=== PATIENT | female | born 2000 | race Caucasian/White ===

== ENCOUNTER → 2022-12-27 14:46 | Outpatient (CLI) | payer SELFPAY ==
--- NOTE | ~2022-12-27 | US_ITS ---
Pelvic ultrasound. Clinical History: Second trimester , inconclusive viability Technique: Realtime transabdominal and transvaginal scanning of the pelvis was performed. Color flow Doppler and Doppler spectral analysis were performed. Findings: The uterus is anteverted, and contains an intrauterine gestation. heart rate is 157 b pm. [place]-rump length of 6.3 cm corresponds to an estimated gestational age of 12 weeks 5 days. Cervi x closed, measuring 4.3 cm in length. The right ovary is not visualized. No significant right ovarian or adnexal mass is seen. The left ovary measures 3.6 x 3.5 x 4.1 cm. No significant left ovarian or adnexal mass is seen. There is no evidence of free fluid in the cul de sac. Impression: Live intrauterine gestation with estimated gestational age of 12 weeks 5 days. heart rate is 15 7 bpm. Reviewed, dictated and finalized at [facility]. Impression: Live intrauterine gestation with estimated gestational age of 12 weeks 5 days. heart rate is 157 bpm.
== END ==
PROVIDERS: PCP Advanced Practice Midwife; Visit Provider Advanced Practice Midwife
DX: O36.80X0 Pregnancy with inconclusive fetal viability, not applicable or unspecified (principal); Z3A.12 12 weeks gestation of pregnancy
CPT/HCPCS: 76801

== ENCOUNTER → 2023-02-04 15:47 | Outpatient (CLI) | payer SELFPAY ==
--- NOTE | ~2023-02-04 | US_ITS ---
EXAMINATION: US OB /maternal detail DATE: 02/04/2023 16:29 INDICATION: Encounter for screening, unspecified. TECHNIQUE: Real-time pelvic ultrasound was performed. COMPARISON: Ultrasound 12/27/2022 FINDINGS: There is a single living fetus in breech presentation. The placenta is posterior and covers the inte rnal cervical os. The cervical length is 4.5 cm which is normal. heart rate is 151 beats per mi nute (bpm). The amniotic fluid volume is subjectively normal. The following biometric data were obtained: Biparietal diameter (BPD): 4.0 cm; head circumference (HC): 14.9 cm; abdominal circumference (AC): 12 .5 cm; femur length (FL): 2.4 cm. These measurements are concordant. Estimated weight is 209 g +/- 31 g, which correlates with the 18th percentile when 07/06/23 is u sed as estimated date of delivery. As single measurements, these parameters are each equal to the following estimated gestational ages: BPD: 18 weeks 0 days. HC: 18 weeks 0 days. AC: 18 weeks 1 days. FL: 17 weeks 2 days. estimated gestational age based solely on measurements from this exam is 17 weeks 6 days +/- 1 weeks 2 days. The cerebral ventricles, cerebellum, cisterna magna, nuchal fold, and visualized portions of the spin e are normal. The heart is normal. The ventricular outflow tracts are suboptimally visualized. The di aphragm, stomach, kidneys, and bladder are normal. There are two umbilical arteries to yield a 3-vess el cord. The cord insertion is normal. IMPRESSION: 1. Single living fetus in breech presentation. 2. Estimated weight is 209 g +/- 31 g, which correlates with the 18th percentile when 07/06/23 is used as estimated date of delivery. This date was set by ultrasound on 12/27/2022. 3. Placenta previa. Follow-up ultrasound is recommended in the third trimester. Reviewed, dictated and finalized at location A. IMPRESSION: 1. Single living fetus in breech presentation. 2. Estimated weight is 209 g +/- 31 g, which correlates with the 18th rcentile when 07/06/23 is used as estimated date of delivery. This date was set by ultrasound on 12/27/2022. 3. Placenta previa. Follow-up ultrasound is recommended in the third trimester.
== END ==
PROVIDERS: PCP Obstetrics & Gynecology Gynecology; Visit Provider Obstetrics & Gynecology Gynecology
DX: Z36.9 Encounter for antenatal screening, unspecified (principal); Z3A.17 17 weeks gestation of pregnancy
CPT/HCPCS: 76805

== ENCOUNTER → 2023-03-07 10:16 | Outpatient (CLI) | payer SELFPAY ==
--- NOTE | ~2023-03-07 | US_ITS ---
US OB limited 03/07/2023 10:59 Indication: Placenta previa. Procedure: High-resolution Limited obstetrical ultrasound Comparison: Ultrasound dated 02/04/2023 Findings: There is a single living intrauterine in transverse right presentation. hea rt rate 158 BPM. Placenta is posterior and covers the internal cervical os, consistent with previa. C ervical length is 7.5 cm. Amniotic fluid is subjectively normal. Limited survey demonstrates no rmal outflow tracts. Impression: 1: Single living intrauterine in transverse presentation. 2: Persistent placenta previa. Reviewed, dictated and finalized at location B. Impression: 1: Single living intrauterine in transverse presentation. 2: Persistent placenta previa.
== END ==
PROVIDERS: Visit Provider Nurse Practitioner
DX: O44.22 Partial placenta previa NOS or without hemorrhage, second trimester (principal); Z3A.00 Weeks of gestation of pregnancy not specified
CPT/HCPCS: 76815

== ENCOUNTER → 2023-04-04 08:11 | Outpatient (CLI) | payer SELFPAY ==
--- NOTE | ~2023-04-04 | US_ITS ---
US OB limited 04/04/2023 08:32 Indication: Low-lying placenta Procedure: High-resolution Limited obstetrical ultrasound using transabdominal technique Comparison: 03/07/2023 Findings: There is a single living intrauterine in transverse left presentation with heart rate of 124 BPM. Placenta is posterior with previa. Cervical length 5.4 cm. Amniotic fluid is s ubjectively normal. Impression: 1: Single living intrauterine in transverse left presentation. 2: Placenta previa. Reviewed, dictated and finalized at location [] Impression: 1: Single living intrauterine in transverse left presentation. 2: Placenta previa.
== END ==
PROVIDERS: PCP Obstetrics & Gynecology Gynecology; Visit Provider Obstetrics & Gynecology Gynecology
DX: O44.10 Complete placenta previa with hemorrhage, unspecified trimester (principal); Z3A.00 Weeks of gestation of pregnancy not specified
CPT/HCPCS: 76815

== ENCOUNTER → 2023-05-02 08:14 | Outpatient (CLI) | payer SELFPAY ==
--- NOTE | ~2023-05-02 | US_ITS ---
EXAMINATION: US OB follow up DATE: 05/02/2023 08:41 INDICATION: Follow-up placenta. TECHNIQUE: Real-time ultrasound of the pelvis was performed. COMPARISON: 04/04/2023. FINDINGS: There is a single living fetus in vertex presentation. The placenta is posterior, 1.4 cm from the ce rvix. The cervix is closed, measuring 4.3 cm in length. heart rate is 140 bpm. The amniotic flu id index is 16.2 cm, which is normal (5th to 95th percentile is 9 to 23.4 cm). The following biometric data were obtained: Biparietal diameter (BPD): 7.88 cm; head circumference (HC): 28.96 cm; abdominal circumference (AC): 26.30 cm; femur length (FL): 5.76 cm. These measurements are concordant. As single measurements, these parameters are each equal to the following estimated gestational ages w ith ranges of +/- 2 standard deviations: BPD: 31 weeks 4 days ( 28 weeks 4 days - 34 weeks 5 days). HC: 31 weeks 6 days ( 28 weeks 6 days - 34 weeks 6 days). AC: 30 weeks 3 days ( 27 weeks 3 days - 33 weeks 3 days). FL: 30 weeks 1 days ( 28 weeks 1 days - 32 weeks 2 days). Estimated weight is 1599 g +/- 239.86 g, which correlates with the 32.7 percentile when 07/06/20 23 is used as estimated date of delivery (this data set by ultrasound on 12/27/2022). estimated gestational age based solely on measurements from this exam is 31 weeks 0 days +/- 2 weeks 1 days. [facility] by ultrasound 07/04/2023. IMPRESSION: Single living fetus in vertex presentation. Low-lying placenta. Reviewed, dictated and finalized at location K.
== END ==
PROVIDERS: PCP Obstetrics & Gynecology Gynecology; Visit Provider Obstetrics & Gynecology Gynecology
DX: O44.43 Low lying placenta NOS or without hemorrhage, third trimester (principal); Z3A.00 Weeks of gestation of pregnancy not specified
CPT/HCPCS: 76816

== ENCOUNTER → 2023-05-30 10:13 | Outpatient (CLI) | payer SELFPAY ==
--- NOTE | ~2023-05-30 | US_ITS ---
EXAMINATION: US OB follow up DATE: 05/30/2023 10:55 INDICATION: Low-lying placenta during third trimester . TECHNIQUE: Real-time ultrasound of the pelvis was performed. The interpreting radiologist was not pre sent for the study. COMPARISON: None. FINDINGS: There is a single living fetus in vertex presentation. The placenta is posterior. The caudal margin of the placentas obscured by the skull but is not visualized within the 4.5 cm the internal cer vical os. heart rate is 140 beats per minute (bpm). The amniotic fluid volume is subjectively n ormal. The following biometric data were obtained: BPD: 8.6 cm -> 34 weeks 5 days Head circumference: 32.3 cm -> 36 weeks 4 days Abdominal circumference: 29.4 cm -> 33 weeks 2 days Femur length: 6.2 cm -> 32 weeks 1 days These measurements are concordant. Head circumference to abdominal circumference ratio: 1.10 (normal range 0.94-1.11). Estimated weight: 2198 g (+/-) 330 g or 4 lbs. 14 oz. (+/-) 12 oz. IMPRESSION: 1. Single living fetus in vertex presentation with heart rate of 140 bpm. 2. Posterior placenta with obscured caudal margin which is at least 4.5 cm from the internal cervical os. 3. Estimated weight is 15th percentile by Hadlock criteria when 07/06/2023 is used as the estima brandon date of delivery ([facility]). Please correlate with clinical information or earlier ultrasounds for mos t accurate [facility]. Reviewed, dictated and finalized at location A. IMPRESSION: 1. Single living fetus in vertex presentation with heart rate of 140 bpm. 2. Posterior placenta with obscured caudal margin which is at least 4.5 cm from the internal cervical os. 3. Estimated weight is 15th percentile by Hadlock criteria when 07/06/2023 is used as the estimated date of delivery ([facility]). Please correlate with clinica l information or earlier ultrasounds for most accurate [facility].
== END ==
PROVIDERS: PCP Obstetrics & Gynecology Gynecology; Visit Provider Obstetrics & Gynecology Gynecology
DX: O44.43 Low lying placenta NOS or without hemorrhage, third trimester (principal); O24.414 Gestational diabetes mellitus in pregnancy, insulin controlled; Z79.4 Long term (current) use of insulin
CPT/HCPCS: 76816

== ENCOUNTER 2023-06-05 07:59 | Outpatient (CLI) | payer OTHER, SELFPAY ==
[2023-06-05 09:26] VITALS: BP 116/78; PULSE 104
[2023-06-05 09:38] VITALS: BP 116/78; PULSE 104
--- NOTE | 2023-06-05 09:55 | PM.OBTRLD ---
OB - Triage/Final Diagnosis Visit Information Reason for evaluation: other (r/o ROM) Comments/Additional reasons for admission: I have assessed the risk for this patient, Charissa Rodriguez, and determined that she would benefit from observation care. Evaluation Vital signs: Vital Signs - 24 hr 06/05/23 09:26 Pulse Rate 104 H Blood Pressure 116/78
== END 2023-06-05 09:35 | disposition home or self-care (01) ==
LOC: ANHOBOP 08:07 → ANHLDR 08:09
PROVIDERS: Visit Provider Obstetrics & Gynecology Gynecology
DX: O42.90 Premature rupture of membranes, unspecified as to length of time between rupture and onset of labor, unspecified weeks of gestation (principal); Z3A.00 Weeks of gestation of pregnancy not specified
CPT/HCPCS: 59025; 84112; 99199

== ENCOUNTER 2023-07-08 04:52 | Inpatient (IN) | payer OTHER, SELFPAY ==
[2023-07-08] VITALS (56 sets, daily range): BP systolic 89–126; BP diastolic 39–88; PULSE 74–164; TEMP 36.2–36.6; O2SAT 96–100; BMI 33.8
--- NOTE | 2023-07-08 05:26 | LDADM ---
This patient, Charissa Rodriguez, was admitted to Labor/Delivery/Recovery 107 on 07/08/23 at 04:52. Plans for labor, pain management and were discussed with patient. Patient/family oriented to hospital policies and general routines including ID bracelet, bed and alarms, visiting hours, pain management, procedures, bathroom and other care routines, personal items, smoking policy, room service/diet and guest tray routines, security routines, and visiting hours. Patient/Family are encouraged to report perceived risks to care and to ask questions if they do not understand what they are told or what they should do. See [facility]BI[facility] for further documentation.
[2023-07-08 06:30] LABS: Basophils Absolute Auto 0.1 K/mm3 (0.0-0.1); Basophils Percent Auto 0.5 % (0.2-1.2); Eosinophils Absolute Auto 0.6 K/mm3 (0-0.3); Eosinophils Percent Auto 4.8 % (0-4.4); Hematocrit 33.9 % (37.0-47.0); Hemoglobin 11.2 g/dL (12.0-15.0); Immature Granulocyte Absolute 0.18 K/mm3 (0.00-0.031); Immature Granulocyte Percent A 1.5 % (0-0.5); Immature Platelet Fraction Pct 6.7 % (0.9-11.2); Lymphocytes Absolute Auto 2.48 K/mm3 (0.9-3.2); Lymphocytes Percent Auto 20.5 % (18.3-44.2); Mean Corpuscular Hemoglobin 28.4 pg (26-34); Monocytes Absolute Auto 0.6 K/mm3 (0.1-0.6); Neutrophils Absolute Auto 8.2 K/mm3 (1.3-6.7); Neutrophils Percent Auto 67.7 % (45.5-73.1); Platelet Count Result 190 k/mm3 (150-375); Red Blood Count 3.94 M/mm3 (4.2-5.4); Red Cell Distribution Width 12.7 % (11.5-14.5); White Blood Count 12.1 K/mm3 (4.5-10.0)
[2023-07-08] MEDS: OXYTOCIN 30 UNITS/NS 500 ML 30 UNITS/500 ML BAG IV CONT (07:06)
[2023-07-08] MEDS: LACTATED RINGERS 1,000 ML 125 ML IV CONT (07:07)
[2023-07-08 07:19] LABS: Glucose Point of Care 92 mg/dl (65-105)
--- NOTE | 2023-07-08 07:58 | WPDOBADMIT ---
Obstetrics - Admit Note Admission Note: record reviewed. No pertinent additions to the history and/or any subsequent changes in the physical findings that are not consistent with the expected course of the were found. Additions to the history and/or subsequent changes in the physical findings follow. None.
--- NOTE | 2023-07-08 07:58 | PM.OBPNLAB ---
Pain Control Date/time seen: 07/08/23 07:50 Pain control: tolerating well Pelvic Exam Comments: 3cm per RN exam on admit Contractions Monitor mode: External Contraction pattern: Irregular Contraction intensity: Mild Status status: Category l Assessment and Plan Assessment: induction ongoing Plan: continuous present management Comments: 23 y.o. at 40 weeks 2 days. Hx Factor V Leiden, Resolved placenta previa, GDMA2, and anemia in . Pitocin started this am. Blood glucose WNL. PT/Ptt not drawn on admission. labs ordered for later this am. Plan for blood sugars q 4 hours until active labor and then q 1 hour. Feeling mild contractions. Partner present and supportive. Discussed plan of care and option for amniotomy at some point. Charissa desires an unmedicated . Anticipate vaginal . Dr. Henry updated.
[2023-07-08 11:14] LABS: Glucose Point of Care 127 mg/dl (65-105)
[2023-07-08 11:26] LABS: Rapid Plasma Reagin Non-Reactive (NonReactive)
[2023-07-08 11:28] LABS: INR 0.9; Partial Thromboplastin Time 25.7 SECONDS (22.3-36.8); Prothrombin Time 12.1 Seconds (11.1-14.7)
[2023-07-08 11:54] LABS: Glucose Point of Care 104 mg/dl (65-105)
--- NOTE | 2023-07-08 12:01 | WPDANESEPP ---
Anes - Eval Pre Procedure Procedure: labor epidural Date/Time: 07/08/23 12:01 Surgeon: daniella Preop Diagnosis: pain during labor Pre Op Diagnosis: Induction of Labor Patient Data Age: 23 Gender: F Height: 1.57 m Weight: 83.9 kg Last Vital Signs Temp 36.6 C 07/08/23 11:00 Pulse 122 H 07/08/23 11:01 BP 90/72 L 07/08/23 11:01 Allergies Allergy/AdvReac Type Severity Reaction Status Date / Time No Known Allergies Allergy Verified 06/10/23 15:32 Home Medications Medication Instructions Recorded Confirmed Type enoxaparin 40 mg/0.4 mL 40 mg subcut DAILY 06/10/23 06/10/23 History subcutaneous syringe ergocalciferol (vitamin D2) 1,250 1,250 mcg PO WEEKLY 06/10/23 06/10/23 History mcg (50,000 unit) capsule (Vitamin D2) insulin NPH isoph U-100 human 100 13 unit subcut HS 06/10/23 06/10/23 History unit/mL subcutaneous suspension (Novolin N NPH U-100 Insulin isophane) vit#24-iron amino acid 1 tablet PO DAILY 06/10/23 06/10/23 History chelat-folic acid 30 mg-975 mcg tablet Laboratory Tests 07/08/23 07/08/23 07/08/23 06:03 06:05 06:55 WBC 12.1 H K/mm3 (4.5-10.0) RBC 3.94 L M/mm3 (4.2-5.4) Hgb 11.2 L g/dL (12.0-15.0) Hct 33.9 L % (37.0-47.0) MCV 86.0 fl (80-100) MCH 28.4 pg (26-34) MCHC 33.0 g/dl (32-36) RDW 12.7 % (11.5-14.5) Plt Count 190 k/mm3 (150-375) MPV 11.0 H fl (7.4-10.4) Immature Gran % (Auto) 1.5 H % (0-0.5) Neut % (Auto) 67.7 % (45.5-73.1) Lymph % (Auto) 20.5 % (18.3-44.2) [place] % (Auto) 5.0 % (2.6-8.5) Eos % (Auto) 4.8 H % (0-4.4) Baso % (Auto) 0.5 % (0.2-1.2) Lymph # (Auto) 2.48 K/mm3 (0.9-3.2) [place] # (Auto) 0.6 K/mm3 (0.1-0.6) Eos # (Auto) 0.6 H K/mm3 (0-0.3) Baso # (Auto) 0.1 K/mm3 (0.0-0.1) Abs Immat Gran (auto) 0.18 H K/mm3 (0.00-0.031) Absolute Neuts (auto) 8.2 H K/mm3 (1.3-6.7) Absolute Nucleated RBC 0.0 K/mm3 (0.0-0.012) Nucleated RBC % 0.0 % (0.0-0.2) % Immature Plt Fraction 6.7 % (0.9-11.2) PT INR APTT POC Capillary Glucose 92 mg/dl (65-105) RPR Non-reactive (NonReactive) Blood Type O Positive Antibody Screen Negative 07/08/23 07/08/23 07/08/23 10:45 11:10 11:49 WBC RBC Hgb Hct MCV MCH MCHC RDW Plt Count MPV Immature Gran % (Auto) Neut % (Auto) Lymph % (Auto) [place] % (Auto) Eos % (Auto) Baso % (Auto) Lymph # (Auto) [place] # (Auto) Eos # (Auto) Baso # (Auto) Abs Immat Gran (auto) Absolute Neuts (auto) Absolute Nucleated RBC Nucleated RBC % % Immature Plt Fraction PT 12.1 Seconds (11.1-14.7) INR 0.9 APTT 25.7 SECONDS (22.3-36.8) POC Capillary Glucose 127 H mg/dl 104 mg/dl (65-105) (65-105) RPR Blood Type Antibody Screen Patient hx anesthesia problems: none Family hx anesthesia problems: none Results Review: All pre-operative results and documents have been reviewed as part of the pre-operative evaluation. [facility] Past Medical History Medical History (Updated 07/08/23 @ 12:02 by Claudia Gao CRNA) Gestational diabetes IUP (intrauterine ), incidental Obesity (BMI 30-39.9) Family History Family History (Updated 06/10/23 @ 15:36 by Kathie Tiraod RN) Grandparent Hypertension Social History Social History Smoking status: Never sm
[2023-07-08 16:19] LABS: Glucose Point of Care 80 mg/dl (65-105)
--- NOTE | 2023-07-08 17:54 | PM.OBPNLAB ---
Pain Control Date/time seen: 07/08/23 17:35 Pain control: tolerating well Comments: Feeling regular uterine contractions but tolerating them well. Pelvic Exam Dilation (cm): 5 Effacement (%): 80 station: -2 Amniotic membrane status: Bulging Contractions Monitor mode: External Contraction frequency: 3 (2-5) Contraction duration: 60 Contraction pattern: Irregular Contraction intensity: Moderate Status status: Category ll Comments: Mostly Cat 1. One variable deceleration. Moderate variability and accelerations present. Assessment and Plan Assessment: induction ongoing Plan: continuous present management Comments: CNM to bedside. Discussed plan of care an option for amniotomy. Discussed risks, benefits, and expectations of breaking water. Patient is agreeable. Amniotomy performed and there was a moderate return of clear amniotic fluid. Patient tolerated procedure well. Pitocin rate decreased in half. Anticipate vaginal . Dr. Henry updated.
[2023-07-08 20:13] LABS: Glucose Point of Care 105 mg/dl (65-105)
--- NOTE | 2023-07-08 21:52 | WPDANESEPN ---
Anes - Epidural Procedure Note Date/Time: 07/08/23 21:52 Consent: I have discussed with the patient/family/POA, the placement of an epidural catheter and the use of epidural narcotic/local anesthetic for labor analgesia and/or postoperative pain management, including associated potential risks, benefits, complications and side effects. I have discussed alternative methods of labor analgesia and/or postoperative pain management. The patient/family/POA, understand(s) and wish(es) to proceed with epidural narcotic/local anesthetic for labor analgesia and/or postoperative pain management. Time-Out: A pre-procedural Time-Out was completed immediately before starting the procedure and confirmed: Patient Identification, Site, Procedure, Patient Position and the Availability of Requisite Equipment. Clinical Indications: Labor pain Epidural Insertion Note Patient position: sitting Skin prep: chlorhexidine and sterile drape Needle: 18g Tuohy-Schliff Catheter: 20g Unstyleted Technique: Loss of resistance. Level of insertion: L3/4 Catheter skin dashawn (cm): 12 Length in epidural space (cm): 6 Skin anesthesia: lidocaine 1% Test dose: 1.5% Lidocaine with 1:[id number] Epi, negative for subarachnoid Inj and negative for intravascular Inj Time of test dose: 21:30 Observations: tolerated well Complications: none
[2023-07-08 22:48] LABS: Glucose Point of Care 103 mg/dl (65-105)
[2023-07-09] VITALS (67 sets, daily range): BP systolic 86–243; BP diastolic 43–225; PULSE 77–161; RESP 16; TEMP 36.6–37.1; O2SAT 79–100
[2023-07-09 00:11] LABS: Glucose Point of Care 117 mg/dl (65-105)
[2023-07-09 01:21] LABS: Glucose Point of Care 96 mg/dl (65-105)
[2023-07-09] MEDS: FAMOTIDINE 20 MG/2 ML VIAL IV PUSH (01:47)
--- NOTE | 2023-07-09 02:34 | PM.OBPNLAB ---
Pain Control Date/time seen: 07/09/23 0130 Pain control: tolerating well and epidural Pelvic Exam Comments: 8cm by recent RN exam Contractions Monitor mode: Internal Contraction pattern: Regular Status status: Category ll Comments: Moderate variability with accelerations. Variable deceleration present. Assessment and Plan Assessment: induction ongoing Plan: continuous present management
[2023-07-09] MEDS: OXYTOCIN 30 UNITS/NS 500 ML 30 UNITS/500 ML BAG 125 UNITS IV CONT (03:06)
--- NOTE | 2023-07-09 03:57 | PM.OBPRVD ---
OB - Delivery Note Procedure Delivery date: 07/09/23 Procedure: Events: Gestational Diabetes (GDMA2) and Other (Factor 5 Leiden (heterozygous), Anemia, Resolved placenta previa) Induction method: Per Pitocin Protocol Delivery augmentation: Rupture of Membranes Delivery monitor: External FHT, External Uterine and Internal Uterine Route of delivery: Episiotomy description: None Laceration Description: Perineal - 2nd Degree and Other (Bilateral sulcus lacerations) Delivery repair: vicryl Specimen: Yes Quantitative Blood Loss (ml): 700 Anesthesia type: Epidural Disposition: Floor Narrative: Patient arrived for induction of labor secondary to GDM A2. Her induction was started with Pitocin. Amniotomy was performed. She progressed to complete dilation and pushed extremely well with contractions. She quickly brought the head to a complete crown. with the next push, she delivered the entire Head followed by the anterior and posterior shoulders. He was delivered in a somersault maneuver and a loose nuchal cord was reduced. The infant was placed on the maternal abdomen and care was transferred to the nursery staff. After 1 minute of life the cord was doubly clamped and cut. Cord blood, cord gases, and cord segment were obtained. The placenta delivered spontaneously. Three separate lacerations were repaired in the usual fashion. After which there was excellent hemostasis and firm uterine tone. All delivery counts were correct. Mother and baby skin to skin in the delivery room. [place] Baby Date of : 07/09/23 Time of : 02:47 Weeks of gestation at delivery: 40 Infant gender: Male Weight (pounds): 7 Weight (ounces): 4 presentation: vertex position: Left Occiput Anterior Placenta delivery description: Spontaneous and Normal Configuration Cord Vessel Description: 3 Vessels, Clamped/Cut and Delayed Cord Clamping score one minute: 8 score five minutes: 9
--- NOTE | 2023-07-09 04:09 | PM.OBDSVD ---
DS: Admitting Diagnosis Discharge Date 07/10/2023 Admitting Diagnosis 23 y.o. at 40 weeks 2 days GDMA2 Factor V Leiden Heterozygous Rh Negative DS: Discharge Diagnosis Discharge Diagnosis (1) (normal spontaneous vaginal delivery): Code(s): O80 - Encounter for full-term uncomplicated delivery Status: Acute (2) GDM, class A2: Code(s): O24.419 - Gestational diabetes mellitus in , unspecified control Status: Acute (3) Factor 5 Leiden mutation, heterozygous: Code(s): D68.51 - Activated protein C resistance Status: Acute (4) Mother currently breast-feeding: Code(s): Z39.1 - Encounter for care and examination of lactating mother Status: Acute (5) Rh negative status during : Code(s): O26.899 - Other specified related conditions, unspecified trimester; Z67.91 - Unspecified blood type, Rh negative Status: Acute OB - DS: Summary Hospital Course Hospital Course: Uncomplicated OB Procedures : Ultrasound OB Procedures Intrapartum: Spontaneous Vag Delivery OB Procedures: : Rubella lg and Other (IV Iron infusion) Peripartum Data Delivery Method: Natural Vaginal Laceration Description: Perineal - 2nd Degree (and 2 sulcus lacerations bilaterally) Episiotomy description: None complications: none Status at Discharge Functional status at discharge: independent ambulation Overall status at discharge: patient is progressing back to baseline Time Spent with Patient Time attestation: Total time spent providing and/or coordinating discharge services: Exam Narrative: Alert and oriented. Mood is pleasant and cooperative. Perineum with minimal edema. Fundus firm and below umbilicus. Const: General: cooperative, healthy appearing, no acute distress and alert Orientation/consciousness: patient oriented x3 Limitations: no limitations Resp: Effort & Inspection: normal respiratory effort and able to speak in complete sentences Auscultation: clear to auscultation bilaterally Cardio: Rate: regular rate GI: Inspection: normal to inspection Auscultation: normal bowel sounds : General: Yes bladder normal to palpation External Female Exam: external swelling (small, WNL) Bimanual exam- vagina & uterus: bladder normal to palpation OB/external & speculum: vaginal bleeding (small) Other: Fundus firm and below U Skin: General skin exam: normal color and no rashes or lesions noted Neuro: General: patient oriented x3 and moves all extremities Cognition (Neuro): normal cognition Extrem: General: normal to inspection and no calf tenderness Psych: Appearance: grossly normal Mental Status: mental status grossly normal Affect: normal affect Thought process: Normal thought process present DS: Data Data Completed and Pending Labs on day of discharge: Labs from last 24 hours 07/09/23 07/09/23 07/08/23 01:18 00:07 22:45 WBC RBC Hgb Hct MCV MCH MCHC RDW Plt Count MPV Immature Gran % (Auto) Neut % (Auto) Lymph % (Auto) [place] % (Auto) Eos % (Auto) Baso % (Auto) Lymph # (Auto) [place] # (Auto) Eos # (Auto) Baso # (Auto) Abs Immat Gran (auto) Absolute Neuts (auto) Absolute Nucleated RBC Nucleated RBC % % Immature Plt Fraction PT INR APTT POC Capillary Glucose 96 117 H 103 RPR Blood Type Antibody Screen 07/08/23 07/08/23 07/08/23 20:08 16:17 11:49 WBC RBC Hgb Hct MCV MCH MCHC RDW Plt Count MPV Immature Gran % (Auto) Neut % (Auto) Lymph % (Auto) [place] % (Auto) Eos % (Auto) Baso % (Auto) Lymph # (Auto) [place] # (Auto) Eos # (Auto) Baso # (Auto) Abs Immat Gran (auto) Absolute Neuts (auto) Absolute Nucleated RBC Nucleated RBC % % Immature Plt Fraction PT INR APTT POC Capillary Glucose 10
[2023-07-09] MEDS: BENZOCAINE 20% AER SPR (*SP) 56 GM CAN 1 SPRAY TOPICAL (06:25)
[2023-07-09] MEDS: WITCH HAZEL 40 PADS 1 PAD TOPICAL (06:25)
[2023-07-09] MEDS: HYDROcodone/acetaminophen (*CRX) 5-325 MG TABLET 1 TAB PO (07:27)
--- NOTE | 2023-07-09 07:45 | PC.NURSE ---
Patient arrived at 0715. Admission completed. Resting quietly with family at bedside.
[2023-07-09] MEDS: ENOXAPARIN 40 MG/0.4 ML SYRINGE SUB-Q (10:13)
[2023-07-09] MEDS: ACETAMINOPHEN 325 MG TABLET 650 MG PO (10:14)
[2023-07-09] MEDS: DOCUSATE SODIUM 100 MG CAPSULE PO ×2 (10:15→18:01)
[2023-07-09] MEDS: MULTIVIT/MIN/PREN/FOL AC/IRON TABLET 1 TAB PO (10:15)
[2023-07-09] MEDS: HYDROcodone/acetaminophen (*CRX) 10-325 MG TABLET 1 TAB PO ×3 (13:21→20:30)
[2023-07-09] MEDS: POLYSACCHARIDE IRON COMPLEX 150 MG CAPSULE PO (18:01)
[2023-07-10] MEDS: HYDROcodone/acetaminophen (*CRX) 10-325 MG TABLET 1 TAB PO (02:05)
[2023-07-10 05:24] LABS: Hematocrit 25.7 % (37.0-47.0); Hemoglobin 8.4 g/dL (12.0-15.0)
[2023-07-10] MEDS: ACETAMINOPHEN 325 MG TABLET 650 MG PO ×2 (08:18→17:33)
[2023-07-10] MEDS: DOCUSATE SODIUM 100 MG CAPSULE PO (08:18)
[2023-07-10] MEDS: MULTIVIT/MIN/PREN/FOL AC/IRON TABLET 1 TAB PO (08:18)
[2023-07-10] MEDS: ENOXAPARIN 40 MG/0.4 ML SYRINGE SUB-Q (08:19)
--- NOTE | 2023-07-10 08:23 | PM.OBPNVD ---
OB - PN: Subj Subjective Date/time seen: 07/10/23 08:05 Interval history: Doing well. Urinating without difficulty. Denies passing any large clots. Denies dizziness with ambulating this am. Did have some lightheadedness yesterday. Tolerating po food and fluids. Bonding with . Pain controlled with Tylenol and [place]. well. Partner present and very supportive. Patient comments: pain well controlled Man[place] baby status: doing well and nursing well feeding status: exclusively breast feeding OB - PN: Obj Data Labs 07/10/23 04:34 Labs: Laboratory Results - last 24 hr 07/10/23 04:34 Hgb 8.4 L Hct 25.7 L OB - PN A/P Assessment and Plan (1) (normal spontaneous vaginal delivery): Code(s): O80 - Encounter for full-term uncomplicated delivery Status: Acute (2) Mother currently breast-feeding: Code(s): Z39.1 - Encounter for care and examination of lactating mother Status: Acute (3) Factor 5 Leiden mutation, heterozygous: Code(s): D68.51 - Activated protein C resistance Status: Acute (4) GDM, class A2: Code(s): O24.419 - Gestational diabetes mellitus in , unspecified control Status: Acute Assessment and Plan: Plan 2 hour GTT at 6 weeks (5) Rubella non-immune status, delivered, current hospitalization: Code(s): O99.892 - Other specified diseases and conditions complicating childbirth; Z28.39 - Other underimmunization status Status: Acute Assessment and Plan: Plan MMR prior to discharge (6) hemorrhage: Qualifiers: hemorrhage type: other immediate Qualified Code(s): O72.1 - Other immediate hemorrhage Code(s): O72.1 - Other immediate hemorrhage Status: Acute Assessment and Plan: Blood loss due to 3 seperate 2nd degree lacerations of the vagina/perineum as well as pt previously anticoagulated d/t Factor V Leiden. Plan day: 1 Plan: routine care and discharge home Time Spent With Patient Time: Total time spent is greater than 50% in coordination of care (as documented) at patient's floor/unit and/or counseling patient: Review of Systems Review of Systems: All systems reviewed & are unremarkable except as noted in HPI and below Exam Narrative: Alert and oriented. Mood is pleasant and cooperative. Perineum with minimal edema. Fundus firm and below umbilicus. Const: General: cooperative, healthy appearing, no acute distress and alert Orientation/consciousness: patient oriented x3 Limitations: no limitations Resp: Effort & Inspection: normal respiratory effort and able to speak in complete sentences Auscultation: clear to auscultation bilaterally Cardio: Rate: regular rate GI: Inspection: normal to inspection Auscultation: normal bowel sounds : General: Yes bladder normal to palpation External Female Exam: external swelling (small, WNL) Bimanual exam- vagina & uterus: bladder normal to palpation OB/external & speculum: vaginal bleeding (small) Other: Fundus firm and below U Skin: General skin exam: normal color and no rashes or lesions noted Neuro: General: patient oriented x3 and moves all extremities Cognition (Neuro): normal cognition Extrem: General: normal to inspection and no calf tenderness Psych: Appearance: grossly normal Mental Status: mental status grossly normal Affect: normal affect Thought process: Normal thought process present
[2023-07-10] MEDS: IRON SUCROSE COMPLEX 500 MG in SODIUM CHLORIDE 0.9% IV 250 ML 78.57 MG IVPB (10:25)
[2023-07-10 10:30] VITALS: BP 111/61; PULSE 104; RESP 16; TEMP 36.3; O2SAT 100
[2023-07-10] MEDS: POLYSACCHARIDE IRON COMPLEX 150 MG CAPSULE PO (17:33)
[2023-07-10 19:30] VITALS: BP 99/63; PULSE 107; RESP 18; TEMP 37
[2023-07-11] MEDS: ACETAMINOPHEN 325 MG TABLET 650 MG PO (02:02)
--- NOTE | 2023-07-11 07:46 | PM.OBPNVD ---
OB - PN: Subj Subjective Date/time seen: 07/11/23 07:30 Interval history: Doing well. Urinating without difficulty. Denies passing any large clots. Denies dizziness or lightheadness with ambulating. Still tolerating po food and fluids. Bonding well with infant. Pain controlled with Tylenol and [place]. very well. Partner present and very supportive. DC cancelled yesterday due to cafeteria table attendant desiring infant to remain hospitalized. Patient comments: no complaints and pain well controlled baby status: doing well and nursing well feeding status: exclusively breast feeding OB - PN: Obj Data Labs 07/10/23 04:34 OB - PN A/P Assessment and Plan (1) (normal spontaneous vaginal delivery): Code(s): O80 - Encounter for full-term uncomplicated delivery Status: Acute (2) Mother currently breast-feeding: Code(s): Z39.1 - Encounter for care and examination of lactating mother Status: Acute (3) Factor 5 Leiden mutation, heterozygous: Code(s): D68.51 - Activated protein C resistance Status: Acute (4) GDM, class A2: Code(s): O24.419 - Gestational diabetes mellitus in , unspecified control Status: Acute Assessment and Plan: Plan 2 hour GTT at 6 weeks (5) Rubella non-immune status, delivered, current hospitalization: Code(s): O99.892 - Other specified diseases and conditions complicating childbirth; Z28.39 - Other underimmunization status Status: Acute Assessment and Plan: Plan MMR prior to discharge (6) hemorrhage: Qualifiers: hemorrhage type: other immediate Qualified Code(s): O72.1 - Other immediate hemorrhage Code(s): O72.1 - Other immediate hemorrhage Status: Acute Assessment and Plan: Blood loss due to 3 seperate 2nd degree lacerations of the vagina/perineum as well as pt previously anticoagulated d/t Factor V Leiden. Plan day: 2 Plan: discharge home Time Spent With Patient Time: Total time spent is greater than 50% in coordination of care (as documented) at patient's floor/unit and/or counseling patient: Review of Systems Review of Systems: All systems reviewed & are unremarkable except as noted in HPI and below Exam Narrative: Alert and oriented. Mood is pleasant and cooperative. Perineum with minimal edema. Fundus firm and below umbilicus. Const: General: cooperative, healthy appearing, no acute distress and alert Orientation/consciousness: patient oriented x3 Limitations: no limitations Resp: Effort & Inspection: normal respiratory effort and able to speak in complete sentences Cardio: Heart sounds: S1 normal heart sound present and S2 normal heart sound present GI: Inspection: normal to inspection Auscultation: normal bowel sounds : General: Yes bladder normal to palpation Bimanual exam- vagina & uterus: bladder normal to palpation OB/external & speculum: vaginal bleeding (small) Other: Fundus firm and below U Skin: General skin exam: normal color and no rashes or lesions noted Neuro: General: patient oriented x3 and moves all extremities Cognition (Neuro): normal cognition Extrem: General: normal to inspection and no calf tenderness Psych: Appearance: grossly normal Mental Status: mental status grossly normal Affect: normal affect Thought process: Normal thought process present
--- NOTE | 2023-07-11 07:49 | PM.OBDSVD ---
DS: Admitting Diagnosis Discharge Date 07/11/2023 Admitting Diagnosis 23 y.o. at 40 weeks 2 days GDMA2 Factor V Leiden Heterozygous Rh Negative DS: Discharge Diagnosis Discharge Diagnosis (1) (normal spontaneous vaginal delivery): Code(s): O80 - Encounter for full-term uncomplicated delivery Status: Acute (2) GDM, class A2: Code(s): O24.419 - Gestational diabetes mellitus in , unspecified control Status: Acute (3) Factor 5 Leiden mutation, heterozygous: Code(s): D68.51 - Activated protein C resistance Status: Acute (4) Mother currently breast-feeding: Code(s): Z39.1 - Encounter for care and examination of lactating mother Status: Acute (5) Rh negative status during : Code(s): O26.899 - Other specified related conditions, unspecified trimester; Z67.91 - Unspecified blood type, Rh negative Status: Acute OB - DS: Summary Hospital Course Hospital Course: Uncomplicated OB Procedures : NST and Ultrasound OB Procedures Intrapartum: Spontaneous Vag Delivery OB Procedures: : Rubella lg Time Spent with Patient Time attestation: Total time spent providing and/or coordinating discharge services: Exam Narrative: Alert and oriented. Mood is pleasant and cooperative. Perineum with minimal edema. Fundus firm and below umbilicus. Const: General: cooperative, healthy appearing, no acute distress and alert Orientation/consciousness: patient oriented x3 Limitations: no limitations Resp: Effort & Inspection: normal respiratory effort and able to speak in complete sentences Cardio: Heart sounds: S1 normal heart sound present and S2 normal heart sound present GI: Inspection: normal to inspection Auscultation: normal bowel sounds : General: Yes bladder normal to palpation Bimanual exam- vagina & uterus: bladder normal to palpation OB/external & speculum: vaginal bleeding (small) Other: Fundus firm and below U Skin: General skin exam: normal color and no rashes or lesions noted Neuro: General: patient oriented x3 and moves all extremities Cognition (Neuro): normal cognition Extrem: General: normal to inspection and no calf tenderness Psych: Appearance: grossly normal Mental Status: mental status grossly normal Affect: normal affect Thought process: Normal thought process present DS: Data Data Completed and Pending Pending studies at discharge: Pending at discharge 07/09/23 03:00 Surgical [PTH] Routine Discharge Plan Discharge Attending physician on discharge: Mali Henry Discharging Clinician: Ree Tian Anticipated Discharge Date/Time: 07/11/23 11:00 Patient Disposition: Home, Self-Care Activity: may shower Diet: as tolerated Wound Care Instructions: follow printed instructions Discharge Instructions: Continue taking your vitamin and any other supplements as previously directed (Examples: Iron, Vitamin D). You may take Tylenol 1000mg over the counter every 6 hours as needed for pain. Do not exceed 4000mg of Tylenol daily. You may continue using tucks pads and dermoplast spray if needed for a few more days. Patient Instructions: Antibiotic Form Stand Alone Forms: General Discharge Information Follow-up/Referrals: Ree Tian, CNM [Certified Nurse Snack Stewardess] - (6 weeks ) Discharge Medications: New hydrocodone-acetaminophen 5-325 mg tablet 1 tablet PO Q4H PRN (Reason: pain) Qty: 20 0RF docusate sodium [Colace] 100 mg capsule 100 mg PO BID Qty: 60 0RF ferrous fum-vit C-vit B12-FA 200-250-0.01-1 mg capsule 1 cap PO .BID Qty: 60 0RF Continued ergocalciferol (vitamin D2) [Vitamin D2] 1,250 mcg (50,000 unit) capsule 1,250 mcg PO WEEKLY Complete 30-975 mg-mcg Tablet 1 tablet PO DAILY enoxaparin 40 mg/0.4 mL syringe 40 mg subcut DAILY 42 Days Qty: 16.8 0RF Discontinu
[2023-07-11] MEDS: DOCUSATE SODIUM 100 MG CAPSULE PO (07:57)
[2023-07-11] MEDS: WITCH HAZEL 40 PADS 1 PAD TOPICAL (07:58)
[2023-07-11] MEDS: POLYSACCHARIDE IRON COMPLEX 150 MG CAPSULE PO (07:58)
[2023-07-11] MEDS: BENZOCAINE 20% AER SPR (*SP) 56 GM CAN 1 SPRAY TOPICAL (07:58)
[2023-07-11] MEDS: ENOXAPARIN 40 MG/0.4 ML SYRINGE SUB-Q (07:58)
[2023-07-11 08:15] VITALS: BP 103/64; PULSE 97; RESP 16; TEMP 36.5; O2SAT 100
[2023-07-11 09:20] LABS: Basophils Absolute Auto 0.1 K/mm3 (0.0-0.1); Basophils Percent Auto 0.5 % (0.2-1.2); Eosinophils Absolute Auto 0.5 K/mm3 (0-0.3); Eosinophils Percent Auto 3.2 % (0-4.4); Hematocrit 28.6 % (37.0-47.0); Hemoglobin 9.1 g/dL (12.0-15.0); Immature Granulocyte Absolute 0.46 K/mm3 (0.00-0.031); Immature Granulocyte Percent A 2.8 % (0-0.5); Lymphocytes Absolute Auto 2.26 K/mm3 (0.9-3.2); Lymphocytes Percent Auto 13.5 % (18.3-44.2); Mean Corpuscular HGB Conc 31.8 g/dl (32-36); Mean Platelet Volume 10.2 fl (7.4-10.4); Monocytes Absolute Auto 0.7 K/mm3 (0.1-0.6); Monocytes Percent Auto 4.4 % (2.6-8.5); Neutrophils Absolute Auto 12.6 K/mm3 (1.3-6.7); Neutrophils Percent Auto 75.6 % (45.5-73.1); Platelet Count Result 200 k/mm3 (150-375); Red Blood Count 3.25 M/mm3 (4.2-5.4); Red Cell Distribution Width 13.2 % (11.5-14.5); White Blood Count 16.7 K/mm3 (4.5-10.0)
--- NOTE | 2023-07-11 09:28 | PC.NURSE ---
[id number] Mother verbalizes she is able to independently latch with appropriate positioning/alignment. She denies any nipple discomfort with exception of occasional misshaping of the nipple and is responsively . is currently meeting outcomes for weight, output, jaundice and feeding frequencies of 8-12 times in 24 hours. Mother declines any additional assistance/education at this time. Mother is encouraged to call for assistance if her doesn?t latch, there is discomfort with latching or for a latch assessment before going home. Mother voiced understanding of information shared and the mom reminded of the mom/baby guide for an additional resource. Primary RN is present.
[2023-07-11 10:38] VITALS: PULSE 97; RESP 16; O2SAT 100
[2023-07-12 09:11] VITALS: BP 112/66; PULSE 103; RESP 18; TEMP 36.9; O2SAT 100
[2023-07-12] MEDS: MEASLES,MUMPS,RUBELLA VACCINE 0.5 ML VIAL SUB-Q (09:25)
== END 2023-07-11 12:10 | disposition home or self-care (01) | DRG 806 ==
LOC: ANHLDR 07-09 04:15 → ANHOB2 07-09 07:23
PROVIDERS: Admitting Provider Advanced Practice Midwife; Visit Provider Obstetrics & Gynecology Gynecology
DX: O24.424 Gestational diabetes mellitus in childbirth, insulin controlled (principal); D68.51 Activated protein C resistance; Z37.0 Single live birth; O99.12 Other diseases of the blood and blood-forming organs and certain disorders involving the immune mechanism complicating childbirth; O72.1 Other immediate postpartum hemorrhage; O99.02 Anemia complicating childbirth; D64.9 Anemia, unspecified; O70.1 Second degree perineal laceration during delivery; O69.81X0 Labor and delivery complicated by cord around neck, without compression, not applicable or unspecified; O67.8 Other intrapartum hemorrhage; Z3A.40 40 weeks gestation of pregnancy; Z67.91 Unspecified blood type, Rh negative
CPT/HCPCS: 36415; 82948; 85014; 85018; 85025; 85055; 85610; 85730; 86592; 86850; 86900; 86901; 88307; 90710; A9270; J1650; J1756; J2590; J2795; J7050; J7120